=== PATIENT | female | born 1970 | race Caucasian/White ===

== ENCOUNTER 2018-11-13 11:36 | Emergency (ER) | payer OTHER ==
[2018-11-13 11:51] VITALS: BP 117/70; PULSE 83; TEMP 98.2; BMI 36.3
--- NOTE | 2018-11-13 11:52 | PDOC ---
Rapid Medical Evaluation Chief Complaint: Laceration Time Seen by Provider: 11/13/18 11:47 Medical Evaluation: Allergies Allergy/AdvReac Type Severity Reaction Status Date / Time No Known Allergies Allergy Verified 11/13/18 11:47 11/13/18 11:47 I have performed a brief in-person evaluation of this patient. The patient presents with a chief complaint of:right index finger lac with a glass yesterday. h/o DM. Does not recall last tetanus Pertinent physical exam findings:1CM Lac to plantar aspect of proximal phalange of right index finger I have ordered the following: boostrix The patient will proceed to the ED for further evaluation. Discharge Disposition - Diagnosis Laceration of right index finger Qualifiers: Encounter type: initial encounter Damage to nail status: without damage Foreign body presence: without foreign body Qualified Code(s): S61.210A - Laceration without foreign body of right index finger without damage to nail, initial encounter - Discharge Dispostion Condition at time of disposition: Stable - Referrals - Patient Instructions - Post Discharge Activity
[2018-11-13] MEDS ORDERED: DIPHTH,PERTUSS(ACELL),TET 0.5 ML DISP.SYRIN IM ONE ×2 (11:55→12:01)
--- NOTE | 2018-11-13 12:04 | PDOC ---
History of Present Illness - General Chief Complaint: Laceration Stated Complaint: WOUND Time Seen by Provider: 11/13/18 11:47 History Source: Patient - History of Present Illness Timing/Duration: reports: yesterday Location: reports: other (finger) Past History - Past Medical History Allergies/Adverse Reactions: Allergies Allergy/AdvReac Type Severity Reaction Status Date / Time No Known Allergies Allergy Verified 11/13/18 11:47 Home Medications: Ambulatory Orders Loratadine [Claritin] 10 mg PO DAILY #30 tablet 06/13/15 Methylprednisolone [Medrol Dose Alberto] 4 mg PO ASDIR #21 tablet 06/13/15 Cephalexin [Keflex] 500 mg PO Q6H #28 capsule 11/13/18 Anemia: No Asthma: Yes Cancer: No Cardiac Disorders: Yes (BLOCKAGES) COPD: No Diabetes: Yes (type 2) GI Disorders: Yes HTN: Yes Kidney Stones: No - Surgical History Cardiac Surgery: No (card cath no stent) Cholecystectomy: Yes Orthopedic Surgery: Yes (1 week ago post arthroscopic outpatient) - Reproductive History (#): 10 Para: 1 Cervical CA: No Dysfunctional Uterine Bleeding: No Ectopic : No Endometrial CA: No Polycystic Ovaries: No Therapeutic (s) & number: Yes (9) Tubal Ligation: No - Immunization History Immunization Up to Date: No - Suicide/Smoking/Psychosocial Hx Smoking Status: No Smoking History: Current some day smoker Have you smoked in the past 12 months: No Number of Cigarettes Smoked Daily: 0 If you are a former smoker, when did you quit?: 03/2015 Information on smoking cessation initiated: No 'Breaking Loose' booklet given: 10/27/14 Hx Alcohol Use: No Drug/Substance Use Hx: No Substance Use Type: Alcohol Review of Systems - Review of Systems Constitutional: No: Chills, Fever *Physical Exam - Vital Signs Last Vital Signs Temp Pulse Resp BP Pulse Ox 98.2 F 83 18 117/70 96 11/13/18 11:49 11/13/18 11:49 11/13/18 11:49 11/13/18 11:49 11/13/18 11:49 - Physical Exam General Appearance: Yes: Appropriately Dressed. No: Apparent Distress HEENT: positive: Normal Voice Neck: positive: Supple Respiratory/Chest: negative: Respiratory Distress Extremity: positive: Other (minor cutaneous lac to volar aspect of proximal phalanx of R index w/ sig ttp, minimal swelling diffusely to digit, no e/o abscess, FROMI w/ no sig pain w/ movement) Integumentary: positive: Dry, Warm Neurologic: positive: Fully Oriented, Alert, Normal Mood/Affect Medical Decision Making - Medical Decision Making 11/13/18 12:23 48 yo female, IDDM, here with pain, swelling to R index finger after sustaining laceration from broken nail maltese bottle yesterday. Denies fever or chills. Feels well otherwise see exam Minor lac to R index w/ ? early cellulitis, no tenosynovitis or abscess -local wound care in ED -Tetanus updated -dc w/ abx -wound check in 2 days 11/13/18 13:01 *DC/Admit/Observation/Transfer Diagnosis at time of Disposition: Laceration of right index finger Qualifiers: Encounter type: initial encounter Damage to nail status: without damage Foreign body presence: without foreign body Qualified Code(s): S61.210A - Laceration without foreign body of right index finger without damage to nail, initial encounter - Discharge Dispostion Disposition: HOME Condition at time of disposition: Stable - Prescriptions Prescriptions: Cephalexin [Keflex] 500 mg PO Q6H #28 capsule - Referrals - Patient Instructions Printed Discharge Instructions: DI for Minor Laceration Additional Instructions: You were started on antibiotics for possible wound infection. Take medication as prescribed. Please return to ER in 2 days for wound check - Post Discharge Activity
== END 2018-11-13 12:28 | disposition home or self-care (01) ==
LOC: JERFT 11:36
PROC: 3E0234Z Introduction of Serum, Toxoid and Vaccine into Muscle, Percutaneous Approach (ICD-10-PCS; principal; 2018-11-13)
DX: S61.210A Laceration without foreign body of right index finger without damage to nail, initial encounter (principal); W25.XXXA Contact with sharp glass, initial encounter; Y93.89 Activity, other specified; Y92.89 Other specified places as the place of occurrence of the external cause; E11.9 Type 2 diabetes mellitus without complications; F17.210 Nicotine dependence, cigarettes, uncomplicated; J45.909 Unspecified asthma, uncomplicated; I10 Essential (primary) hypertension
CPT/HCPCS: 90471; 90715; 99281-25

== ENCOUNTER 2018-12-21 10:32 | Emergency (ER) | payer OTHER ==
[2018-12-21 10:48] VITALS: BP 106/79; PULSE 82; TEMP 98.1; BMI 36.3
[2018-12-21] MEDS ORDERED: morphine CARPU-JECT 2 MG/1 ML DISP.SYRIN IVPUSH ONE (12:48)
[2018-12-21] MEDS ORDERED: MORPHINE SULFATE 2 MG/ML VIAL ONE (13:30)
[2018-12-21 13:36] LABS: PH,URINE 5.5 (5.0-8.0); URINE APPEARANCE CLEAR; URINE BILIRUBIN NEGATIVE (NEGATIVE); URINE COLOR YELLOW; URINE GLUCOSE (UA) 3+ (NEGATIVE); URINE KETONE NEGATIVE (NEGATIVE); URINE LEUK ESTERASE NEGATIVE (NEGATIVE); URINE NITRITE NEGATIVE (NEGATIVE); URINE PROTEIN NEGATIVE (NEGATIVE); URINE UROBILINOGEN 0.2 mg/dL (0.2-1.0)
--- NOTE | 2018-12-21 13:44 | PDOC ---
History of Present Illness - General Chief Complaint: Wound Stated Complaint: BLEEDING / BELLY BUTTON Time Seen by Provider: 12/21/18 12:43 History Source: Patient Exam Limitations: No Limitations - History of Present Illness Travel History: No Initial Comments: 12/21/18 13:29 48-year-old female presents the emergency room with complaints of pain to her belly button for the past 3 days now with redness and drainage noted this morning. Patient history of diabetes and denies elevated glucose. Denies injury to the affected area recent piercings, or previous infections the affected area. Timing/Duration: reports: getting worse Quality: reports: mild Abdominal Pain Onset Location: reports: periumbilical Pain Radiation: reports: no radiation Activities at Onset: reports: none Aggravating Factors: improves with: Movement Alleviating Factors: improves with: None Past History - Travel Traveled outside of the country in the last 30 days: No Close contact w/someone who was outside of country & ill: No - Past Medical History Allergies/Adverse Reactions: Allergies Allergy/AdvReac Type Severity Reaction Status Date / Time No Known Allergies Allergy Verified 12/21/18 10:43 Home Medications: Ambulatory Orders Albuterol Sulfate Inhaler - [Ventolin Hfa Inhaler -] 1 - 2 inh PO QID PRN Aspirin 81 mg PO DAILY 12/21/18 Atorvastatin Ca [Lipitor] 10 mg PO HS 12/21/18 Ibuprofen [Motrin -] 600 mg PO QID PRN 12/21/18 Metoprolol Succinate [Toprol Xl -] 25 mg PO DAILY 12/21/18 metFORMIN HCL [Metformin HCl] 1,000 mg PO DAILY 12/21/18 predniSONE [Deltasone -] 10 mg PO ASDIR 12/21/18 Anemia: No Asthma: Yes Cancer: No Cardiac Disorders: Yes (BLOCKAGES) COPD: No Diabetes: Yes (type 2) GI Disorders: Yes HTN: Yes Kidney Stones: No - Surgical History Cardiac Surgery: No (card cath no stent) Cholecystectomy: Yes Orthopedic Surgery: Yes (1 week ago post arthroscopic outpatient) - Reproductive History (#): 10 Para: 1 Cervical CA: No Dysfunctional Uterine Bleeding: No Ectopic : No Endometrial CA: No Polycystic Ovaries: No Therapeutic (s) & number: Yes (9) Tubal Ligation: No - Immunization History Immunization Up to Date: No - Suicide/Smoking/Psychosocial Hx Smoking Status: No Smoking History: Unknown if ever smoked Have you smoked in the past 12 months: No Number of Cigarettes Smoked Daily: 0 If you are a former smoker, when did you quit?: 03/2015 'Breaking Loose' booklet given: 10/27/14 Hx Alcohol Use: No Drug/Substance Use Hx: No Substance Use Type: Alcohol Patient Lives Alone: No Lives with/in: spouse/SO Abd/GI Specific PMHX - Complaint Specific PMHX Gall Bladder Disease: Yes Pancreatitis: No GI Ulcer Disease: No Review of Systems - Review of Systems Able to Perform ROS?: No Constitutional: No: Symptoms Reported HEENTM: No: Symptoms Reported Respiratory: No: Symptoms reported Cardiac (ROS): No: Symptoms Reported ABD/GI: Yes: Other Musculoskeletal: No: Symptoms Reported Integumentary: Yes: Erythema Neurological: No: Symptoms reported Endocrine: No: Symptoms Reported Hematologic/Lymphatic: No: Symptoms Reported *Physical Exam - Vital Signs Last Vital Signs Temp Pulse Resp BP Pulse Ox 98.1 F 82 18 106/79 94 L 12/21/18 10:47 12/21/18 10:47 12/21/18 10:47 12/21/18 10:47 12/21/18 10:47 - Physical Exam General Appearance: Yes: Nourished, Appropriately Dressed. No: Apparent Distress HEENT: negative: Pale Conjunctivae Respiratory/Chest: positive: Lungs Clear, Normal Breath Sounds. negative: Respiratory Distress, Accessory Muscle Use Cardiovascular: positive: Regular Rhythm, Regular Rate. negative: Murmur Gastrointestinal/Abdominal: positive: Soft, Tenderness (periumbilical) Integumentary: positive: Other (Noted circular erythematous area surrounding the umbilical region area warm to touch and noted small amount of purulent drainage within the Navel) Neurologic: positive: Motor Strength 5/5 (ambulatory) ED Treatment Course - LABORATORY CBC & Chemistry Diagram: 12/21/18 13:40 12/21/18 13:40 - ADDITIONAL ORDERS Additional order review: Laboratory Results 12/21/18 12/21/18 13:00 12:00 Urine Color Yellow Urine Appearance Clear Urine pH 5.5 Ur Specific [place] 1.029 Urine Protein Negative Urine Glucose (UA) 3+ H Urine Ketones Negative Urine Blood Negative Urine Nitrite Negative Urine Bilirubin Negative Urine Urobilinogen 0.2 Ur Leukocyte Esterase Negative Urine HCG, Qual Negative - RADIOLOGY Radiology Studies Ordered: Category Date Time Status ABDOMEN & PELVIS CT WITH CONTR [CT] Stat CT Scan 12/21/18 12:48 Ordered Medical Decision Making - Medical Decision Making 12/21/18 13:08 Chief complaint: Warm red tender area over the periumbilical region patient is a diabetic with history of MRSA Exam. Patient with noted erythematous warm to touch tender area over the periumbilical region with purulent drainage noted and within the naval. No palpable fluctuance Plan: Labs, wound culture, urine, morphine and ultrasound 12/21/18 14:48 Laboratory Tests 12/21/18 12/21/18 12/21/18 12:00 13:00 13:40 WBC 10.6 H Hgb 14.6 Hct 42.8 Sodium Potassium Chloride Carbon Dioxide Anion Gap BUN Creatinine Random Glucose Lactic Acid Calcium Total Bilirubin AST ALT Alkaline Phosphatase Total Protein Albumin Urine Glucose (UA) 3+ H Ur Leukocyte Esterase Negative Urine HCG, Qual Negative 12/21/18 12/21/18 13:40 13:40 WBC Hgb Hct Sodium 136 Potassium 3.8 Chloride 104 Carbon Dioxide 29 Anion Gap 3 L BUN 7.2 Creatinine 0.5 L Random Glucose 216 H Lactic Acid 1.6 Calcium 9.1 Total Bilirubin 0.4 AST 12 L ALT 31 Alkaline Phosphatase 101 Total Protein 6.7 Albumin 3.4 Urine Glucose (UA) Ur Leukocyte Esterase Urine HCG, Qual 12/21/18 16:38 CT shows interval development of a concent check subcutaneous edema along the umbilicus. There is also probable small amount of associated subcutaneous fluid possibly representing an abscess. No intra-abdominal extension is seen. Patient requesting to be discharged home and will return to the ED if symptoms worsen. I will prescribe patient Bactrim and Keflex with recommendations to apply hot towels take warm showers and observe for worsening symptoms. *DC/Admit/Observation/Transfer Diagnosis at time of Disposition: Abscess, umbilical - Discharge Dispostion Disposition: HOME Condition at time of disposition: Good - Referrals - Patient Instructions Printed Discharge Instructions: DI for Wound Infection Additional Instructions: Take antibiotics as prescribed until completed use Percocet as needed for pain. Apply warm compress, take hot showers 3-4 times a day /15 minutes of straight heat for at least the next 3 days. Please return to the ED if you develop any increased redness, swelling, fever, chills, pain or nausea - Post Discharge Activity
[2018-12-21 14:03] LABS: BASO % 0.3 % (0-2.0); EOS % 1.7 % (0-4.5); HEMATOCRIT 42.8 % (32.4-45.2); HEMOGLOBIN 14.6 GM/dL (10.7-15.3); LYMPH % 27.8 % (8-40); MCH 31.3 pg (25.7-33.7); MCHC 34.1 g/dl (32.0-36.0); MEAN CELL VOLUME 91.5 fl (80-96); MEAN PLT VOLUME 7.9 fl (7.5-11.1); MONO % 7.4 % (3.8-10.2); NEUT % 62.8 % (42.8-82.8); PLATELET COUNT 289 K/MM3 (134-434); RBC 4.67 M/mm3 (3.60-5.2); RDW 13.4 % (11.6-15.6); WHITE BLOOD COUNT 10.6 K/mm3 (4.0-10.0)
[2018-12-21 14:21] LABS: ALBUMIN 3.4 g/dl (3.4-5.0); BILIRUBIN,TOTAL 0.4 mg/dL (0.2-1); BLOOD UREA NITROGEN 7.2 mg/dL (7-18); CALCIUM 9.1 mg/dL (8.5-10.1); CREATININE 0.5 mg/dL (0.55-1.3); POTASSIUM 3.8 mmol/L (3.5-5.1); TOT PROT 6.7 g/dl (6.4-8.2)
== END 2018-12-21 17:06 | disposition home or self-care (01) ==
LOC: JER 10:32
PROC: 3E033NZ Introduction of Analgesics, Hypnotics, Sedatives into Peripheral Vein, Percutaneous Approach (ICD-10-PCS; principal; 2018-12-21)
DX: L02.216 Cutaneous abscess of umbilicus (principal); I25.10 Atherosclerotic heart disease of native coronary artery without angina pectoris; I10 Essential (primary) hypertension; Z98.61 Coronary angioplasty status; E11.9 Type 2 diabetes mellitus without complications; Z79.84 Long term (current) use of oral hypoglycemic drugs
CPT/HCPCS: 36415; 74177-TC; 80053; 81003; 83605; 84703; 85025; 87070; 87077; 87205; 96374; 99283-25

== ENCOUNTER 2019-02-13 13:11 | Emergency (ER) | payer OTHER ==
[2019-02-13 13:34] VITALS: BP 126/88; PULSE 74; TEMP 98; BMI 36.3
--- NOTE | 2019-02-13 14:12 | PDOC ---
History of Present Illness - General Chief Complaint: Wound Stated Complaint: WOUND Time Seen by Provider: 02/13/19 13:49 - History of Present Illness Initial Comments: 02/13/19 14:12 CHIEF COMPLAINT: periumbilical pain HISTORY OF PRESENT ILLNESS: 49 yo F with hx of asthma, NIDDM, hypertension, s/p cholecystectomy presents the fast track with periumbilical pain since yesterday. Patient reports that she was seen here 2 months ago for similar symptoms and was diagnosed with "an abscess behind my belly button." She was prescribed Bactrim and Keflex and states she did feel better afterwards but "I' m started to feel the same thing again." No recent travel or sick contacts. PAST MEDICAL HISTORY: diabetes, HTN, FAMILY HISTORY: Denies SOCIAL HISTORY: Denies tobacco, alcohol, illicit drug use. SURGICAL HISTORY: cholecystectomy ALLERGIES: No known drug allergies REVIEW OF SYSTEMS General/Constitutional: Denies fever or chills. Denies weakness, weight change. HEENT: Denies change in vision. Denies ear pain or discharge. Denies sore throat. Cardiovascular: Denies chest pain or shortness of breath. Respiratory: Denies cough, wheezing, or hemoptysis. Gastrointestinal: Denies nausea, vomiting, diarrhea or constipation. Denies rectal bleeding. Genitourinary: Denies dysuria, frequency, or change in urination. Musculoskeletal: Denies joint or muscle swelling or pain. Denies neck or back pain. Skin: Warmth and pain to skin surrounding umbilicus. Neurologic: Denies headache, vertigo, loss of consciousness, or loss of sensation. PHYSICAL EXAM General Appearance: Well-appearing, appropriately dressed. No apparent distress , no intoxication. HEENT: EOMI, PERRLA, normal ENT inspection, normal voice, TMs normal, pharynx normal. No conjunctival pallor. No photophobia, scleral icterus. Neck: Supple. Trachea midline. No tenderness, rigidity, carotid bruit, stridor , lymphadenopathy, or thyromegaly. Respiratory/Chest: Lungs CTAB. No shortness of breath, chest tenderness, respiratory distress, accessory muscle use. No crackles, rales, rhonchi, stridor , wheezing, dullness Cardiovascular: RRR. S1, S2. No JVD, murmur, bradycardia, tachycardia. Vascular Pulses: Dorsalis-Pedis (R): 2+, Dorsalis-Pedis (L): 2+ Gastrointestinal/Abdominal: Periumbilical tenderness with purulent discharge to umbilicus, no erythema, swelling, induration. Normal bowel sounds. Abdomen soft, non-distended. No tenderness or rebound tenderness. No organomegaly, pulsatile mass, guarding, hernia, hepatomegaly, splenomegaly. Lymphatic: No adenopathy, tenderness. Musculoskeletal/Extremities: Normal inspection. FROM of all extremities, normal capillary refill. Pelvis Stable. No CVA tenderness. No tenderness to extremities, pedal edema, swelling, erythema or deformity. Integumentary: Appropriate color, dry, warm. No cyanosis, erythema, jaundice or rash Neurologic: loan originator II-XII intact. Fully oriented, alert. Appropriate mood/affect. Motor strength 5/5. No appreciable EOM palsy, facial droop or sensory deficit. Past History - Past Medical History Allergies/Adverse Reactions: Allergies Allergy/AdvReac Type Severity Reaction Status Date / Time No Known Allergies Allergy Verified 02/13/19 13:35 Home Medications: Ambulatory Orders Albuterol Sulfate Inhaler - [Ventolin Hfa Inhaler -] 1 - 2 inh PO QID PRN Aspirin 81 mg PO DAILY 12/21/18 Atorvastatin Ca [Lipitor] 10 mg PO HS 12/21/18 Cephalexin [Keflex] 500 mg PO BID #14 capsule 12/21/18 Ibuprofen [Motrin -] 600 mg PO QID PRN 12/21/18 Metoprolol Succinate [Toprol Xl -] 25 mg PO DAILY 12/21/18 Oxycodone HCl/Acetaminophen [Percocet 5-325 mg Tablet] 1 - 2 tab PO Q6H PRN #12 tab MDD 4 12/21/18 Sulfamethoxazole/Trimethoprim [Bactrim Ds -] 1 tab PO BID #14 tablet 12/21/18 metFORMIN HCL [Metformin HCl] 1,000 mg PO DAILY 12/21/18 predniSONE [Deltasone -] 10 mg PO ASDIR 12/21/18 Oxycodone HCl/Acetaminophen [Percocet 5-325 mg Tablet] 1 tab PO Q6H PRN #12 tab MDD 4 02/13/19 Anemia: No Asthma: Yes Cancer: No Cardiac Disorders: Yes (BLOCKAGES) COPD: No Diabetes: Yes (type 2) GI Disorders: Yes HTN: Yes Kidney Stones: No - Surgical History Cardiac Surgery: No (card cath no stent) Cholecystectomy: Yes Orthopedic Surgery: Yes (1 week ago post arthroscopic outpatient) - Reproductive History (#): 10 Para: 1 Cervical CA: No Dysfunctional Uterine Bleeding: No Ectopic : No Endometrial CA: No Polycystic Ovaries: No Therapeutic (s) & number: Yes (9) Tubal Ligation: No - Immunization History Immunization Up to Date: No - Suicide/Smoking/Psychosocial Hx Smoking Status: No Smoking History: Current every day smoker Have you smoked in the past 12 months: No Number of Cigarettes Smoked Daily: 0 If you are a former smoker, when did you quit?: 03/2015 Information on smoking cessation initiated: No 'Breaking Loose' booklet given: 10/27/14 Hx Alcohol Use: Yes (SOCIAL) Drug/Substance Use Hx: No Substance Use Type: Alcohol *Physical Exam - Vital Signs Last Vital Signs Temp Pulse Resp BP Pulse Ox 98.0 F 74 17 126/88 93 L 02/13/19 13:30 02/13/19 13:30 02/13/19 13:30 02/13/19 13:30 02/13/19 13:30 ED Treatment Course - LABORATORY CBC & Chemistry Diagram: 02/13/19 14:31 02/13/19 14:31 Medical Decision Making - Medical Decision Making 02/13/19 14:18 49 yo F with hx of diabetes presents the fast track with periumbilical pain since yesterday. -labs -CTAP -wound culture sent 02/13/19 14:45 Note: Patient was initially triaged to Fast-track. After review of the history of present illness and physical examination by Nurse Practitioner, the patient was transfered to the main ED for higher lever of care. The patient is medically stable for transfer, ED attending and charge nurse/main ED nursing staff aware. Discussed case with HALEY Rai and discharge rn Yousef. *DC/Admit/Observation/Transfer Diagnosis at time of Disposition: Umbilical hernia without obstruction or gangrene - Discharge Dispostion Disposition: HOME Condition at time of disposition: Good - Prescriptions Prescriptions: Oxycodone HCl/Acetaminophen [Percocet 5-325 mg Tablet] 1 tab PO Q6H PRN #12 tab MDD 4 PRN Reason: Severe Pain - Referrals Referrals: [place] MD [Staff Physician] - - Patient Instructions Additional Instructions: Take Tylenol 1 g every 6 hours as needed for pain. You may take 1 Percocet every 6 hours as needed for pain not relieved by Tylenol. You have been given a referral for general surgeon. Call to schedule an appointment for reevaluation and potential surgery. Return to the emergency department for any new or worsening symptoms. Thank you very much for choosing us to provide your emergent health care needs. - Post Discharge Activity
[2019-02-13 14:54] LABS: BASO % 0.7 % (0-2.0); EOS % 1.1 % (0-4.5); HEMOGLOBIN 15.7 GM/dL (10.7-15.3); LYMPH % 28.8 % (8-40); MCH 31.3 pg (25.7-33.7); MCHC 34.1 g/dl (32.0-36.0); MEAN CELL VOLUME 91.6 fl (80-96); MEAN PLT VOLUME 7.9 fl (7.5-11.1); MONO % 6.4 % (3.8-10.2); PLATELET COUNT 354 K/MM3 (134-434); RBC 5.02 M/mm3 (3.60-5.2); RDW 13.4 % (11.6-15.6)
[2019-02-13 15:11] LABS: ALBUMIN 3.4 g/dl (3.4-5.0); BILIRUBIN,TOTAL 0.8 mg/dL (0.2-1); BLOOD UREA NITROGEN 6.6 mg/dL (7-18); CALCIUM 9.3 mg/dL (8.5-10.1); CREATININE 0.7 mg/dL (0.55-1.3); POTASSIUM 3.9 mmol/L (3.5-5.1)
--- NOTE | 2019-02-13 15:13 | PDOC ---
*Physical Exam - Vital Signs Last Vital Signs Temp Pulse Resp BP Pulse Ox 98.0 F 74 17 126/88 93 L 02/13/19 13:30 02/13/19 13:30 02/13/19 13:30 02/13/19 13:30 02/13/19 13:30 ED Treatment Course - LABORATORY CBC & Chemistry Diagram: 02/13/19 14:31 02/13/19 14:31 - ADDITIONAL ORDERS Additional order review: Laboratory Results 02/13/19 02/13/19 14:31 14:31 Sodium 139 Potassium 3.9 Chloride 102 Carbon Dioxide 30 Anion Gap 7 L BUN 6.6 L Creatinine 0.7 Est GFR (CKD-EPI)AfAm 119.58 Est GFR (CKD-EPI)NonAf 103.18 Random Glucose 239 H Calcium 9.3 Total Bilirubin 0.8 AST 13 L ALT 21 Alkaline Phosphatase 125 H Total Protein 7.0 Albumin 3.4 Serum , Qual Negative 02/13/19 14:31 RBC 5.02 MCV 91.6 MCHC 34.1 RDW 13.4 MPV 7.9 Neutrophils % 63.0 Lymphocytes % 28.8 Monocytes % 6.4 Eosinophils % 1.1 Basophils % 0.7 Medical Decision Making - Medical Decision Making 02/13/19 15:12 Patient received in signout from HALEY Schmitt from fast track. Patient here with concern for periumbilical abscess and pending labs along with abdominal CT. Patient otherwise comfortable *DC/Admit/Observation/Transfer Diagnosis at time of Disposition: Umbilical hernia without obstruction or gangrene - Discharge Dispostion Disposition: HOME Condition at time of disposition: Good - Prescriptions Prescriptions: Oxycodone HCl/Acetaminophen [Percocet 5-325 mg Tablet] 1 tab PO Q6H PRN #12 tab MDD 4 PRN Reason: Severe Pain - Referrals Referrals: [place] MD [Staff Physician] - - Patient Instructions Additional Instructions: Take Tylenol 1 g every 6 hours as needed for pain. You may take 1 Percocet every 6 hours as needed for pain not relieved by Tylenol. You have been given a referral for general surgeon. Call to schedule an appointment for reevaluation and potential surgery. Return to the emergency department for any new or worsening symptoms. Thank you very much for choosing us to provide your emergent health care needs. - Post Discharge Activity
--- NOTE | 2019-02-13 16:17 | PDOC ---
*Physical Exam - Vital Signs Last Vital Signs Temp Pulse Resp BP Pulse Ox 98.0 F 74 17 126/88 93 L 02/13/19 13:30 02/13/19 13:30 02/13/19 13:30 02/13/19 13:30 02/13/19 13:30 - Physical Exam General Appearance: Yes: Appropriately Dressed. No: Apparent Distress Gastrointestinal/Abdominal: positive: Normal Bowel Sounds, Soft, Hernia ( reducible umbilical). negative: Tender ED Treatment Course - LABORATORY CBC & Chemistry Diagram: 02/13/19 14:31 02/13/19 14:31 - ADDITIONAL ORDERS Additional order review: Laboratory Results 02/13/19 02/13/19 14:31 14:31 Sodium 139 Potassium 3.9 Chloride 102 Carbon Dioxide 30 Anion Gap 7 L BUN 6.6 L Creatinine 0.7 Est GFR (CKD-EPI)AfAm 119.58 Est GFR (CKD-EPI)NonAf 103.18 Random Glucose 239 H Calcium 9.3 Total Bilirubin 0.8 AST 13 L ALT 21 Alkaline Phosphatase 125 H Total Protein 7.0 Albumin 3.4 Serum , Qual Negative 02/13/19 14:31 RBC 5.02 MCV 91.6 MCHC 34.1 RDW 13.4 MPV 7.9 Neutrophils % 63.0 Lymphocytes % 28.8 Monocytes % 6.4 Eosinophils % 1.1 Basophils % 0.7 Progress Note - Progress Note Progress Note: Received signoff from nurse practitioner Cecelia. Briefly this is a 49-year-old woman history of abdominal abscess here for evaluation of potential abdominal abscess. WBC-10 Chemistries are unremarkable except for glucose of 239. Patient is pending CTAP with oral and IV contrast at this time. Medical Decision Making - Medical Decision Making 02/13/19 18:57 CT scan is read by imaging regulation supervisor: 1. Mild umbilical hernia, containing some fat. Margins of the hernia hearing inflamed without discrete abscess, collection identified. 2. Hepatomegaly with suspected fatty liver infiltration. 3. No evidence of GI or tract obstruction or inflammatory change. Terminal ileum and appendix are within normal limits. 4.1.8 centimeters cyst right ovary. Patient with benign abdominal exam at this time. I will discharge the patient home with instructions to follow up with general surgeon. Referral will be provided. This reports increased pain and inability to take Motrin due to GI issues rate I will give a short-term prescription for Percocet until patient is evaluated by general surgery. I discussed the physical exam findings, ancillary test results and final diagnoses with the patient. I answered all of the patient's questions. The patient was satisfied with the care received and felt comfortable with the discharge plan and treatment plan. The patient will call their primary care physician within 24 hours to arrange follow-up and will return to the Emergency Department with any new, persistent or worsening symptoms. Portions of this note have been documented using voice recognition software. As a result, errors may occur in the orchestrator process. Effort has been made to correct all grammatical and orchestrator error, but some may have been missed. *DC/Admit/Observation/Transfer Diagnosis at time of Disposition: Umbilical hernia without obstruction or gangrene - Discharge Dispostion Disposition: HOME Condition at time of disposition: Fair Decision to Admit order: No - Prescriptions Prescriptions: Oxycodone HCl/Acetaminophen [Percocet 5-325 mg Tablet] 1 tab PO Q6H PRN #12 tab MDD 4 PRN Reason: Severe Pain - Referrals Referrals: [place] MD [Staff Physician] - - Patient Instructions Additional Instructions: Take Tylenol 1 g every 6 hours as needed for pain. You may take 1 Percocet every 6 hours as needed for pain not relieved by Tylenol. You have been given a referral for general surgeon. Call to schedule an appointment for reevaluation and potential surgery. Return to the emergency department for any new or worsening symptoms. Thank you very much for choosing us to provide your emergent health care needs. - Post Discharge Activity
== END 2019-02-13 19:22 | disposition home or self-care (01) ==
LOC: JERFT 13:11 → JER 13:11
DX: K42.9 Umbilical hernia without obstruction or gangrene (principal); I25.10 Atherosclerotic heart disease of native coronary artery without angina pectoris; I10 Essential (primary) hypertension; Z98.61 Coronary angioplasty status; E11.9 Type 2 diabetes mellitus without complications; Z79.84 Long term (current) use of oral hypoglycemic drugs; Z98.890 Other specified postprocedural states
CPT/HCPCS: 36415; 74177-TC; 80053; 84703; 85025; 87070; 87205; 99283-25

== ENCOUNTER 2019-05-03 15:37 | Emergency (ER) | payer OTHER ==
--- NOTE | 2019-05-03 15:43 | PDOC ---
Rapid Medical Evaluation Time Seen by Provider: 05/03/19 15:43 Medical Evaluation: Allergies Allergy/AdvReac Type Severity Reaction Status Date / Time No Known Allergies Allergy Verified 02/13/19 13:35 05/03/19 15:43 I have performed a brief in-person evaluation of this patient. The patient presents with a chief complaint of: abdominal pain Pertinent physical exam findings:stable and in NAD, non-focal I have ordered the following:labs The patient will proceed to the ED for further evaluation.
[2019-05-03 15:44] VITALS: BP 131/69; PULSE 80; TEMP 98; BMI 36.3
[2019-05-03 16:10] LABS: BASO % 0.6 % (0-2.0); EOS % 1.4 % (0-4.5); HEMATOCRIT 47.2 % (32.4-45.2); HEMOGLOBIN 15.7 GM/dL (10.7-15.3); LYMPH % 28.9 % (8-40); MCH 30.7 pg (25.7-33.7); MCHC 33.3 g/dl (32.0-36.0); MEAN CELL VOLUME 92.4 fl (80-96); MEAN PLT VOLUME 8.3 fl (7.5-11.1); MONO % 6.2 % (3.8-10.2); NEUT % 62.9 % (42.8-82.8); PLATELET COUNT 345 K/MM3 (134-434); RBC 5.11 M/mm3 (3.60-5.2); RDW 13.5 % (11.6-15.6); WHITE BLOOD COUNT 10.5 K/mm3 (4.0-10.0)
[2019-05-03 16:35] LABS: INR 0.92 (0.83-1.09); PROTHROMBIN TIME (PATIENT) 10.9 SEC (9.7-13.0)
[2019-05-03 16:37] LABS: ACTIVATED PTT 31.2 SECONDS (25.2-36.5)
[2019-05-03 16:38] LABS: ALBUMIN 3.3 g/dl (3.4-5.0); BILIRUBIN,TOTAL 0.5 mg/dL (0.2-1); CALCIUM 9.4 mg/dL (8.5-10.1); CREATININE 0.6 mg/dL (0.55-1.3); POTASSIUM 4.1 mmol/L (3.5-5.1); TOT PROT 6.8 g/dl (6.4-8.2)
--- NOTE | 2019-05-03 18:09 | PDOC ---
History of Present Illness - General Chief Complaint: Pain Stated Complaint: ABD PAIN Time Seen by Provider: 05/03/19 15:43 History Source: Patient Exam Limitations: No Limitations - History of Present Illness Travel History: No Initial Comments: 05/03/19 18:04 49-year-old female with recent diagnosis of abdominal hernia pending surgery by Dr. Evans. Patient states went to have her surgery done recently but her sugar was elevated in the 400s and was rescheduled along with diet and medication adjustment. patient is requesting something for pain since she states pain is worsened with ambulation and sitting position. Patient denies fever, chills, change in bowel pattern, change in urine pattern , or skin discoloration Timing/Duration: reports: intermittent Quality: reports: moderate Abdominal Pain Onset Location: reports: periumbilical Pain Radiation: reports: LLQ Activities at Onset: reports: none Aggravating Factors: improves with: Movement Alleviating Factors: improves with: Rest Past History - Travel Traveled outside of the country in the last 30 days: No Close contact w/someone who was outside of country & ill: No - Past Medical History Allergies/Adverse Reactions: Allergies Allergy/AdvReac Type Severity Reaction Status Date / Time Sulfa (Sulfonamide Allergy Verified 05/03/19 15:44 Antibiotics) Home Medications: Ambulatory Orders Albuterol Sulfate Inhaler - [Ventolin Hfa Inhaler -] 1 - 2 inh PO QID PRN Aspirin 81 mg PO DAILY 12/21/18 Atorvastatin Ca [Lipitor] 10 mg PO HS 12/21/18 Cephalexin [Keflex] 500 mg PO BID #14 capsule 12/21/18 Ibuprofen [Motrin -] 600 mg PO QID PRN 12/21/18 Metoprolol Succinate [Toprol Xl -] 25 mg PO DAILY 12/21/18 Oxycodone HCl/Acetaminophen [Percocet 5-325 mg Tablet] 1 - 2 tab PO Q6H PRN #12 tab MDD 4 12/21/18 Sulfamethoxazole/Trimethoprim [Bactrim Ds -] 1 tab PO BID #14 tablet 12/21/18 metFORMIN HCL [Metformin HCl] 1,000 mg PO DAILY 12/21/18 predniSONE [Deltasone -] 10 mg PO ASDIR 12/21/18 Oxycodone HCl/Acetaminophen [Percocet 5-325 mg Tablet] 1 tab PO Q6H PRN #12 tab MDD 4 02/13/19 Anemia: No Asthma: Yes Cancer: No Cardiac Disorders: Yes (BLOCKAGES) COPD: No Diabetes: Yes (type 2) GI Disorders: Yes HTN: Yes Kidney Stones: No - Surgical History Cardiac Surgery: No (card cath no stent) Cholecystectomy: Yes Orthopedic Surgery: Yes (1 week ago post arthroscopic outpatient) - Reproductive History (#): 10 Para: 1 Cervical CA: No Dysfunctional Uterine Bleeding: No Ectopic : No Endometrial CA: No Polycystic Ovaries: No Therapeutic (s) & number: Yes (9) Tubal Ligation: No - Immunization History Immunization Up to Date: No - Psycho Social/Smoking Cessation Hx Smoking Status: No Smoking History: Never smoked Have you smoked in the past 12 months: No Number of Cigarettes Smoked Daily: 0 If you are a former smoker, when did you quit?: 03/2015 'Breaking Loose' booklet given: 10/27/14 Hx Alcohol Use: Yes (SOCIAL) Drug/Substance Use Hx: No Substance Use Type: Alcohol Patient Lives Alone: No Lives with/in: spouse/SO Abd/GI Specific PMHX - Complaint Specific PMHX Gall Bladder Disease: Yes Pancreatitis: No GI Ulcer Disease: No Review of Systems - Review of Systems Able to Perform ROS?: Yes Constitutional: No: Symptoms Reported ABD/GI: Yes: Abdominal cramping : No: Symptoms Reported Musculoskeletal: No: Symptoms Reported Integumentary: No: Symptoms Reported Neurological: No: Symptoms reported Hematologic/Lymphatic: No: Symptoms Reported *Physical Exam - Vital Signs Last Vital Signs Temp Pulse Resp BP Pulse Ox 98 F 80 18 131/69 98 05/03/19 15:41 05/03/19 15:41 05/03/19 15:41 05/03/19 15:41 05/03/19 15:41 - Physical Exam General Appearance: Yes: Nourished, Appropriately Dressed. No: Apparent Distress HEENT: negative: Pale Conjunctivae Neck: positive: Supple Respiratory/Chest: positive: Lungs Clear, Normal Breath Sounds. negative: Respiratory Distress, Accessory Muscle Use Cardiovascular: positive: Regular Rhythm, Regular Rate. negative: Murmur Gastrointestinal/Abdominal: positive: Soft, Tenderness (Left periumbilical . no reproducible hernia no signs of strangulation) Musculoskeletal: negative: CVA Tenderness Extremity: positive: Normal Inspection Integumentary: positive: Normal Color, Warm, Moist Neurologic: positive: Motor Strength 5/5 (ambulatory) ED Treatment Course - LABORATORY CBC & Chemistry Diagram: 05/03/19 15:55 05/03/19 15:55 - ADDITIONAL ORDERS Additional order review: Laboratory Results 05/03/19 05/03/19 15:55 15:55 PT with INR 10.90 INR 0.92 PTT (Actin FS) 31.2 Sodium 137 Potassium 4.1 Chloride 104 Carbon Dioxide 30 Anion Gap 3 L BUN 7.0 Creatinine 0.6 Est GFR (CKD-EPI)AfAm 125.80 Est GFR (CKD-EPI)NonAf 108.54 Random Glucose 204 H Calcium 9.4 Total Bilirubin 0.5 AST 14 L ALT 23 Alkaline Phosphatase 104 Total Protein 6.8 Albumin 3.3 L Lipase 103 05/03/19 15:55 RBC 5.11 MCV 92.4 MCHC 33.3 RDW 13.5 MPV 8.3 Neutrophils % 62.9 Lymphocytes % 28.9 Monocytes % 6.2 Eosinophils % 1.4 Basophils % 0.6 Medical Decision Making - Medical Decision Making 05/03/19 18:07 Chief complaint: Here for medical management of periumbilical hernia. patient pending surgery by Dr. diaz. Patient has no other complaints at this time. Exam: Patient with left periumbilical tenderness with no signs of strangulation or skin discoloration. Plan: Patient had labs done in [facility] which were reviewed and normal. 05/03/19 18:08 Laboratory Tests 05/03/19 05/03/19 05/03/19 15:55 15:55 15:55 WBC 10.5 H Hgb 15.7 H Hct 47.2 H Absolute Neuts (auto) 6.6 PT with INR 10.90 INR 0.92 PTT (Actin FS) 31.2 Sodium 137 Potassium 4.1 Chloride 104 Carbon Dioxide 30 BUN 7.0 Creatinine 0.6 Random Glucose 204 H Calcium 9.4 Total Bilirubin 0.5 AST 14 L ALT 23 Alkaline Phosphatase 104 Total Protein 6.8 Albumin 3.3 L Lipase 103 Discharge - Discharge Information Problems reviewed: Yes Clinical Impression/Diagnosis: Umbilical hernia without obstruction or gangrene Condition: Good Disposition: HOME - Follow up/Referral Referrals: Breanne Davis MD [Primary Care Provider] - - Patient Discharge Instructions Patient Printed Discharge Instructions: Abdominal Hernia Additional Instructions: Please do not take any narcotics or alcohol when taking the Percocet. Do not operate any heavy machinery including a vehicle. Follow-up with surgeon as discussed. - Post Discharge Activity
== END 2019-05-03 18:40 | disposition home or self-care (01) ==
LOC: JER 15:37
DX: K42.9 Umbilical hernia without obstruction or gangrene (principal); I25.10 Atherosclerotic heart disease of native coronary artery without angina pectoris; I10 Essential (primary) hypertension; Z98.61 Coronary angioplasty status; E11.9 Type 2 diabetes mellitus without complications; Z79.84 Long term (current) use of oral hypoglycemic drugs; J45.909 Unspecified asthma, uncomplicated; Z88.2 Allergy status to sulfonamides
CPT/HCPCS: 36415; 80053; 83690; 85025; 85610; 85730; 99282-25

== ENCOUNTER 2019-12-27 11:53 | Emergency (ER) | payer OTHER ==
[2019-12-27 12:05] VITALS: BP 125/68; PULSE 81; BMI 35.9
[2019-12-27 12:06] VITALS: TEMP 97.8
--- NOTE | 2019-12-27 12:06 | PDOC ---
Rapid Medical Evaluation Medical Evaluation: Allergies Allergy/AdvReac Type Severity Reaction Status Date / Time Sulfa (Sulfonamide Allergy Verified 05/03/19 15:44 Antibiotics) 12/27/19 12:03 49 h/o DM, HTN, asthma c/o erythema, pain, drainage from umbilical hernia since 3 am today. noticed swelling to area 2 days ago. denies f/c, cp, sob, back pain. VSS obese speaking full sentences erythema and swelling noticed over umbilical area ambulatory A/P: umbilical abscess to ED for eval
[2019-12-27] MEDS ORDERED: ONDANSETRON *ODT* 4 MG TABLET SL ONE (12:22)
[2019-12-27] MEDS ORDERED: ONDANSETRON *ODT* 4 MG TABLET ONE (12:33)
--- NOTE | 2019-12-27 12:54 | PDOC ---
History of Present Illness - General Chief Complaint: Pain Stated Complaint: ABD PAIN Time Seen by Provider: 12/27/19 12:17 - History of Present Illness Initial Comments: 12/27/19 12:51 49-year-old female with a past medical history of diabetes presents for evaluation of a draining umbilical hernia x1 day. No systemic symptoms. Past History - Medical History Allergies/Adverse Reactions: Allergies Allergy/AdvReac Type Severity Reaction Status Date / Time Sulfa (Sulfonamide Allergy Verified 12/27/19 12:06 Antibiotics) Home Medications: Ambulatory Orders Albuterol Sulfate Inhaler - [Ventolin Hfa Inhaler -] 1 - 2 inh PO QID PRN 12/21/18 Aspirin 81 mg PO DAILY 12/21/18 Atorvastatin Ca [Lipitor] 10 mg PO HS 12/21/18 Metoprolol Succinate [Toprol Xl -] 25 mg PO DAILY 12/21/18 metFORMIN HCL [Metformin HCl] 1,000 mg PO BID 12/21/18 Clindamycin [Cleocin -] 300 mg PO Q6HPO #28 capsule 12/27/19 Anemia: No Asthma: Yes Cancer: No Cardiac Disorders: Yes (BLOCKAGES) COPD: No Diabetes: Yes (type 2) GI Disorders: Yes HTN: Yes Kidney Stones: No - Surgical History Cardiac Surgery: No (card cath no stent) Cholecystectomy: Yes Orthopedic Surgery: Yes (1 week ago post arthroscopic outpatient) - Reproductive History (#): 10 Para: 1 Cervical CA: No Dysfunctional Uterine Bleeding: No Ectopic : No Endometrial CA: No Polycystic Ovaries: No Therapeutic (s) & number: Yes (9) Tubal Ligation: No - Immunization History Immunization Up to Date: No - Psycho-Social/Smoking History Smoking Status: No Smoking History: Current some day smoker Have you smoked in the past 12 months: Yes Number of Cigarettes Smoked Daily: 0 If you are a former smoker, when did you quit?: 03/2015 Information on smoking cessation initiated: Yes 'Breaking Loose' booklet given: 10/27/14 - Substance Abuse Hx (Audit-C & DAST Scrn) How often the patient has a drink containing alcohol: Never Score: In Men: 4 or > Positive; In Women: 3 or > Positive: 0 Screen Result (Pos requires Nsg. Audit-10AR): Negative In the last yr the pt used illegal drug/Rx for NonMed reason: No Score: Yes response is considered Positive: 0 Screen Result (Positive result requires Nsg. DAST-10): Negative Review of Systems - Review of Systems Constitutional: No: Chills, Fever, Malaise, Night Sweats ABD/GI: Yes: Nausea *Physical Exam - Vital Signs Last Vital Signs Temp Pulse Resp BP Pulse Ox 97.8 F 81 18 125/68 97 12/27/19 12:02 12/27/19 12:02 12/27/19 12:02 12/27/19 12:12/27/19 12:02 - Physical Exam 12/27/19 12:52 GENERAL: The patient is awake, alert, and fully oriented, in no acute distress. HEAD: Normal with no signs of trauma. EYES: sclera anicteric, conjunctiva clear. ENT: Ears normal tympanic membranes normal oropharynx clear uvula midline NECK: Normal range of motion LUNGS: Breath sounds equal, clear to auscultation bilaterally. No wheezes, and no crackles. HEART: S1 and S2 without murmur, rub or gallop. ABDOMEN: Soft, nontender, normoactive bowel sounds. No guarding, no rebound. No masses. There is mild erythema around the umbilicus. Dried blood in the invagination of the umbilicus. No drainage induration mild sensitivity. EXTREMITIES: Normal range of motion, no edema. No clubbing or cyanosis. No cords, erythema, or tenderness. NEUROLOGICAL: Cranial nerves II through XII grossly intact. PSYCH: Normal mood, normal affect. SKIN: Warm, Dry, normal turgor, no rashes or lesions noted. ED Treatment Course - Medications Given in the ED: ED Medications Discontinued Medications Generic Name Dose Route Start Last Admin Trade Name Freq PRN Reason Stop Dose Admin Ondansetron HCl 4 mg 12/27/19 12:22 12/27/19 12:41 Zofran Odt - SL 12/27/19 12:23 4 mg ONCE ONE Administration Oxycodone/Acetaminophen 2 combo 12/27/19 12:21 12/27/19 12:41 Percocet 5/325 - PO 12/27/19 12:22 2 combo ONCE ONE Administration Medical Decision Making - Medical Decision Making 12/27/19 12:52 This is most likely early cellulitis. There is no drainage that can be expressed. The erythema is minimal. There is no induration of the skin areas of fluctuance mild subjective sensitivity. Patient has an appointment with her operating surgeon in [address] her on a short course of clindamycin in the meantime. Tylenol for pain. I have reviewed the pathophysiology with the patient. They are in agreement with the treatment plan all questions were answered to their satisfaction. Understanding for follow-up without fail was also conveyed to the patient. Again they are in agreement. Discharge - Discharge Information Problems reviewed: Yes Clinical Impression/Diagnosis: Cellulitis Condition: Stable Disposition: HOME - Admission No - Additional Discharge Information Prescriptions: Clindamycin [Cleocin -] 300 mg PO Q6HPO #28 capsule - Follow up/Referral Referrals: Franck Breaux MD [Primary Care Provider] - Finn Lujan MD [Staff Physician] - - Patient Discharge Instructions Additional Instructions: Please take the antibiotics as directed Tylenol for pain as directed. Return to the emergency room for further issues and without fail follow-up with your surgeon in 1 to 2 days for as scheduled for further evaluation and treatment options. - Post Discharge Activity
== END 2019-12-27 13:12 | disposition home or self-care (01) ==
LOC: JER 11:53
DX: L03.311 Cellulitis of abdominal wall (principal)
CPT/HCPCS: 99283-25; Q0162

== ENCOUNTER 2020-10-08 08:36 | Emergency (ER) | payer OTHER ==
[2020-10-08 08:43] VITALS: BP 114/71; PULSE 80; TEMP 97; BMI 35.9
[2020-10-08] MEDS ORDERED: CLINDAMYCIN HCL 150 MG CAPSULE (FP) PO ONE (10:39)
[2020-10-08] MEDS ORDERED: CLINDAMYCIN HCL 150 MG CAPSULE (FP) ONE (10:40)
== END 2020-10-08 10:43 | disposition home or self-care (01) ==
LOC: JER 08:36
DX: K42.9 Umbilical hernia without obstruction or gangrene (principal)
CPT/HCPCS: 99283-25

== ENCOUNTER 2021-03-16 12:40 | Inpatient (IN) | payer OTHER ==
[2021-03-16] MEDS ORDERED: morphine SULFATE 4 MG/ML VIAL ONE ×2 (12:50→13:19)
[2021-03-16] MEDS ORDERED: morphine CARPU-JECT 4 MG/1 ML DISP.SYRIN IVPUSH ONE ×2 (12:50→13:16)
[2021-03-16 13:08] LABS: BASO % 0.5 % (0-2.0); EOS % 2.1 % (0-4.5); HEMATOCRIT 45.3 % (32.4-45.2); HEMOGLOBIN 15.3 GM/dL (10.7-15.3); LYMPH % 36.4 % (8-40); MCH 30.2 pg (25.7-33.7); MCHC 33.7 g/dl (32.0-36.0); MEAN CELL VOLUME 89.6 fl (80-96); MEAN PLT VOLUME 7.6 fl (7.5-11.1); MONO % 6.1 % (3.8-10.2); NEUT % 54.9 % (42.8-82.8); PLATELET COUNT 395 10^3/uL (134-434); RBC 5.05 M/mm3 (3.60-5.2); RDW 12.7 % (11.6-15.6); WHITE BLOOD COUNT 11.9 K/mm3 (4.0-10.0)
[2021-03-16 13:14] LABS: INR 0.97 (0.83-1.09); PROTHROMBIN TIME (PATIENT) 11.7 SEC (9.7-13.0)
[2021-03-16] MEDS ORDERED: ACETAMINOPHEN 1000 MG/100 ML VIAL IVPB ONE (13:16)
[2021-03-16 13:17] LABS: ACTIVATED PTT 25.7 SECONDS (25.2-36.5)
[2021-03-16] MEDS ORDERED: ACETAMINOPHEN INJECTION 100 ML IVPB ONE (13:19)
[2021-03-16 13:30] LABS: ALBUMIN 3.6 g/dl (3.4-5.0); BLOOD UREA NITROGEN 9.2 mg/dL (7-18); CALCIUM 9.8 mg/dL (8.5-10.1)
[2021-03-16 13:33] LABS: CREATININE 0.5 mg/dL (0.55-1.3)
[2021-03-16 13:35] LABS: BILIRUBIN,TOTAL 0.5 mg/dL (0.2-1); TOT PROT 7.6 g/dl (6.4-8.2)
[2021-03-16] MEDS ORDERED: HYDROmorphone HCL CARPU-JECT 2 MG/1 ML DISP.SYRIN IVPUSH ONE ×2 (13:56→14:32)
[2021-03-16] MEDS ORDERED: HYDROmorphone HCl 2 MG/ML VIAL ONE (13:57)
[2021-03-16] MEDS: INSULIN SLIDING SCALE (NOVOLOG) 1 VIAL SQ SCH ×2 (18:36→21:35)
[2021-03-16] MEDS: HYDROmorphone HCl 2 MG/ML VIAL IVPUSH PRN ×2 (18:41→22:54)
[2021-03-16 20:53] VITALS: BMI 34.5
[2021-03-16] MEDS: HEPARIN NA (PORCINE) 5,000 UNITS/ML 1ML VIAL SQ SCH (21:41)
[2021-03-16] MEDS: ATORVASTATIN CA 10 MG TABLET (FP) PO SCH (21:42)
[2021-03-17] MEDS: HYDROmorphone HCl 2 MG/ML VIAL IVPUSH PRN ×5 (04:40→23:50)
[2021-03-17] MEDS: INSULIN SLIDING SCALE (NOVOLOG) 1 VIAL SQ SCH ×4 (06:09→21:29)
[2021-03-17] MEDS: HEPARIN NA (PORCINE) 5,000 UNITS/ML 1ML VIAL SQ SCH ×2 (10:17→21:30)
[2021-03-17] MEDS: metoPROLOL SUCCINATE 25 MG TAB.SR.24H (FP) PO SCH (10:18)
[2021-03-17 11:47] LABS: BASO % 0.4 % (0-2.0); EOS % 0.9 % (0-4.5); HEMATOCRIT 38.3 % (32.4-45.2); HEMOGLOBIN 13.2 GM/dL (10.7-15.3); LYMPH % 21.9 % (8-40); MCH 30.6 pg (25.7-33.7); MCHC 34.3 g/dl (32.0-36.0); MEAN CELL VOLUME 89.1 fl (80-96); MEAN PLT VOLUME 7.9 fl (7.5-11.1); MONO % 7.7 % (3.8-10.2); NEUT % 69.1 % (42.8-82.8); PLATELET COUNT 343 10^3/uL (134-434); RDW 12.7 % (11.6-15.6); WHITE BLOOD COUNT 11.7 K/mm3 (4.0-10.0)
[2021-03-17 12:12] LABS: ALBUMIN 3.3 g/dl (3.4-5.0)
[2021-03-17 12:15] LABS: CREATININE 0.5 mg/dL (0.55-1.3)
[2021-03-17 12:16] LABS: BILIRUBIN,TOTAL 0.9 mg/dL (0.2-1); TOT PROT 7.1 g/dl (6.4-8.2)
[2021-03-17] MEDS ORDERED: ALBUTEROL SO4 HFA INHALER IH PRN (15:31)
[2021-03-17] MEDS: ATORVASTATIN CA 10 MG TABLET (FP) PO SCH (21:30)
[2021-03-17] MEDS: BUDESONIDE/FORMETEROL FUMARATE 160/4.5 mcg INHALER IH SCH (21:30)
[2021-03-18] MEDS: INSULIN SLIDING SCALE (NOVOLOG) 1 VIAL SQ SCH ×4 (06:31→21:25)
[2021-03-18] MEDS: HYDROmorphone HCl 2 MG/ML VIAL IVPUSH PRN (06:33)
[2021-03-18] MEDS ORDERED: morphine SULFATE 4 MG/ML VIAL IVPUSH PRN (09:45)
[2021-03-18] MEDS: morphine SULFATE 4 MG/ML VIAL IVPUSH PRN ×3 (09:53→18:31)
[2021-03-18] MEDS: metoPROLOL SUCCINATE 25 MG TAB.SR.24H (FP) PO SCH (09:56)
[2021-03-18] MEDS: HEPARIN NA (PORCINE) 5,000 UNITS/ML 1ML VIAL SQ SCH ×2 (09:59→21:22)
[2021-03-18] MEDS: BUDESONIDE/FORMETEROL FUMARATE 160/4.5 mcg INHALER IH SCH ×2 (10:01→21:28)
[2021-03-18 10:45] LABS: BASO % 0.3 % (0-2.0); EOS % 0.7 % (0-4.5); HEMATOCRIT 36.3 % (32.4-45.2); HEMOGLOBIN 12.4 GM/dL (10.7-15.3); LYMPH % 18.9 % (8-40); MCH 30.7 pg (25.7-33.7); MCHC 34.2 g/dl (32.0-36.0); MEAN CELL VOLUME 89.9 fl (80-96); MONO % 7.8 % (3.8-10.2); NEUT % 72.3 % (42.8-82.8); PLATELET COUNT 308 10^3/uL (134-434); RBC 4.04 M/mm3 (3.60-5.2); RDW 12.4 % (11.6-15.6); WHITE BLOOD COUNT 10.2 K/mm3 (4.0-10.0)
[2021-03-18] MEDS ORDERED: INSULIN (NOVOLOG) ASPART 100 UNITS/ML 10ML VIAL ONE (11:05)
[2021-03-18 11:14] LABS: BLOOD UREA NITROGEN 9.7 mg/dL (7-18); CALCIUM 8.6 mg/dL (8.5-10.1)
[2021-03-18 11:17] LABS: CREATININE 0.4 mg/dL (0.55-1.3)
[2021-03-18 11:18] LABS: BILIRUBIN,TOTAL 0.9 mg/dL (0.2-1); TOT PROT 6.7 g/dl (6.4-8.2)
[2021-03-18] MEDS: ATORVASTATIN CA 10 MG TABLET (FP) PO SCH (21:22)
[2021-03-19] MEDS: morphine SULFATE 4 MG/ML VIAL IVPUSH PRN ×4 (02:55→20:17)
[2021-03-19] MEDS: INSULIN SLIDING SCALE (NOVOLOG) 1 VIAL SQ SCH ×4 (06:35→22:15)
[2021-03-19] MEDS: HEPARIN NA (PORCINE) 5,000 UNITS/ML 1ML VIAL SQ SCH ×2 (09:29→22:13)
[2021-03-19] MEDS: metoPROLOL SUCCINATE 25 MG TAB.SR.24H (FP) PO SCH (09:29)
[2021-03-19] MEDS: BUDESONIDE/FORMETEROL FUMARATE 160/4.5 mcg INHALER IH SCH ×2 (09:33→22:15)
[2021-03-19] MEDS: ATORVASTATIN CA 10 MG TABLET (FP) PO SCH (22:13)
[2021-03-20] MEDS: morphine SULFATE 4 MG/ML VIAL IVPUSH PRN ×4 (01:05→20:46)
[2021-03-20] MEDS: INSULIN SLIDING SCALE (NOVOLOG) 1 VIAL SQ SCH ×4 (06:44→21:59)
[2021-03-20] MEDS: HEPARIN NA (PORCINE) 5,000 UNITS/ML 1ML VIAL SQ SCH ×2 (09:31→21:59)
[2021-03-20] MEDS: metoPROLOL SUCCINATE 25 MG TAB.SR.24H (FP) PO SCH (10:39)
[2021-03-20] MEDS: BUDESONIDE/FORMETEROL FUMARATE 160/4.5 mcg INHALER IH SCH ×2 (10:47→21:59)
[2021-03-20] MEDS ORDERED: BUPIVACAINE LIPOSOME/PF (EXPAREL) 266 MG/20 ML VIAL ONE (12:38)
[2021-03-20] MEDS ORDERED: BUPIVACAINE HCL/PF 0.5% (5MG/ML) 10 ML VIAL ONE ×3 (12:38→13:32)
[2021-03-20] MEDS ORDERED: MIDAZOLAM HCL 2 MG/2 ML SINGLE DOSE VIAL ONE ×2 (13:12)
[2021-03-20] MEDS ORDERED: ceFAZolin SODIUM 1 GM VIAL IVPB ONE (13:50)
[2021-03-20] MEDS ORDERED: PROPOFOL 20 ML ONE ×2 (14:02→15:07)
[2021-03-20] MEDS ORDERED: LIDOCAINE HCL/PF 2% SDV 5ML VIAL ONE (14:11)
[2021-03-20] MEDS ORDERED: ONDANSETRON 4 MG/2 ML VIAL ONE (14:11)
[2021-03-20] MEDS ORDERED: ceFAZolin SODIUM 1 GM VIAL ONE (14:11)
[2021-03-20] MEDS ORDERED: ONDANSETRON 4 MG/2 ML VIAL IVPUSH PRN ×3 (15:01→16:02)
[2021-03-20] MEDS ORDERED: MAGNESIUM HYDROX 2400MG/30ML ORAL SUSPENSION 30 ML CUP PO PRN (15:42)
[2021-03-20] MEDS ORDERED: MAG HYDROX/AL HYDROX/SIMETH 30 ML UNIT-DOSE CUP PO PRN (15:42)
[2021-03-20] MEDS ORDERED: LACTATED RINGERS SOLUTION 1,000 ML IV SCH (15:45)
[2021-03-20] MEDS ORDERED: ALBUTEROL SO4 HFA INHALER IH PRN (16:02)
[2021-03-20] MEDS ORDERED: morphine SULFATE 4 MG/ML VIAL IVPUSH PRN (16:02)
[2021-03-20] MEDS: ATORVASTATIN CA 10 MG TABLET (FP) PO SCH (21:58)
[2021-03-20] MEDS: SENNOSIDES/DOCUSATE COMBO (SENNA PLUS) TABLET (UD) PO SCH (21:58)
[2021-03-20] MEDS: CEFAZOLIN 2 GM in DEXTROSE 5%-WATER - 100 ML IVPB SCH (22:17)
[2021-03-21] MEDS: morphine SULFATE 4 MG/ML VIAL IVPUSH PRN ×6 (00:53→22:46)
[2021-03-21] MEDS: CEFAZOLIN 2 GM in DEXTROSE 5%-WATER - 100 ML IVPB SCH (05:18)
[2021-03-21] MEDS: INSULIN SLIDING SCALE (NOVOLOG) 1 VIAL SQ SCH ×4 (07:18→21:58)
[2021-03-21 09:02] LABS: HEMATOCRIT 32.6 % (32.4-45.2); HEMOGLOBIN 11.1 GM/dL (10.7-15.3); MCH 30.7 pg (25.7-33.7); MEAN CELL VOLUME 90.5 fl (80-96); MEAN PLT VOLUME 7.9 fl (7.5-11.1); PLATELET COUNT 346 10^3/uL (134-434); RDW 12.5 % (11.6-15.6); WHITE BLOOD COUNT 12.3 K/mm3 (4.0-10.0)
[2021-03-21 09:31] LABS: CALCIUM 8.7 mg/dL (8.5-10.1)
[2021-03-21 09:32] LABS: BLOOD UREA NITROGEN 7.6 mg/dL (7-18)
[2021-03-21 09:35] LABS: CREATININE 0.4 mg/dL (0.55-1.3)
[2021-03-21] MEDS: PANTOPRAZOLE 40 MG TABLET PO SCH (11:37)
[2021-03-21] MEDS: SENNOSIDES/DOCUSATE COMBO (SENNA PLUS) TABLET (UD) PO SCH ×2 (11:37→21:57)
[2021-03-21] MEDS: HEPARIN NA (PORCINE) 5,000 UNITS/ML 1ML VIAL SQ SCH ×2 (11:37→21:57)
[2021-03-21] MEDS: BUDESONIDE/FORMETEROL FUMARATE 160/4.5 mcg INHALER IH SCH ×2 (11:38→21:59)
[2021-03-21] MEDS: MULTIVITAMINS (DAILY MVI) TABLET (FP) PO SCH (11:38)
[2021-03-21] MEDS: metoPROLOL SUCCINATE 25 MG TAB.SR.24H (FP) PO SCH (11:38)
[2021-03-21] MEDS: ATORVASTATIN CA 10 MG TABLET (FP) PO SCH (21:58)
[2021-03-22] MEDS: morphine SULFATE 4 MG/ML VIAL IVPUSH PRN (03:49)
[2021-03-22] MEDS: INSULIN SLIDING SCALE (NOVOLOG) 1 VIAL SQ SCH ×4 (06:32→21:45)
[2021-03-22 08:05] LABS: BASO % 0.4 % (0-2.0); EOS % 2.2 % (0-4.5); HEMATOCRIT 32.4 % (32.4-45.2); HEMOGLOBIN 11.1 GM/dL (10.7-15.3); MCH 30.6 pg (25.7-33.7); MCHC 34.1 g/dl (32.0-36.0); MEAN CELL VOLUME 89.8 fl (80-96); MEAN PLT VOLUME 7.8 fl (7.5-11.1); MONO % 9.3 % (3.8-10.2); NEUT % 67.1 % (42.8-82.8); PLATELET COUNT 353 10^3/uL (134-434); RBC 3.61 M/mm3 (3.60-5.2); RDW 12.4 % (11.6-15.6); WHITE BLOOD COUNT 10.5 K/mm3 (4.0-10.0)
[2021-03-22] MEDS: metoPROLOL SUCCINATE 25 MG TAB.SR.24H (FP) PO SCH (09:09)
[2021-03-22] MEDS: HEPARIN NA (PORCINE) 5,000 UNITS/ML 1ML VIAL SQ SCH (09:09)
[2021-03-22] MEDS: PANTOPRAZOLE 40 MG TABLET PO SCH (09:09)
[2021-03-22] MEDS: SENNOSIDES/DOCUSATE COMBO (SENNA PLUS) TABLET (UD) PO SCH ×2 (09:09→21:45)
[2021-03-22] MEDS: MULTIVITAMINS (DAILY MVI) TABLET (FP) PO SCH (09:09)
[2021-03-22] MEDS: BUDESONIDE/FORMETEROL FUMARATE 160/4.5 mcg INHALER IH SCH ×2 (09:13→21:48)
[2021-03-22] MEDS ORDERED: oxyCODONE HCL 5 MG TABLET PO PRN (11:25)
[2021-03-22] MEDS: oxyCODONE HCL 5 MG TABLET PO PRN ×3 (13:35→21:44)
[2021-03-22] MEDS: ASPIRIN COATED 81 MG TABLET.EC PO SCH (21:45)
[2021-03-22] MEDS: CEPHALEXIN MONOHYDRATE 500 MG CAPSULE (UD) PO SCH (21:45)
[2021-03-22] MEDS: ATORVASTATIN CA 10 MG TABLET (FP) PO SCH (21:45)
[2021-03-23] MEDS: oxyCODONE HCL 5 MG TABLET PO PRN ×5 (06:11→22:41)
[2021-03-23] MEDS: INSULIN SLIDING SCALE (NOVOLOG) 1 VIAL SQ SCH ×4 (06:12→21:57)
[2021-03-23] MEDS: SENNOSIDES/DOCUSATE COMBO (SENNA PLUS) TABLET (UD) PO SCH ×2 (10:05→21:59)
[2021-03-23] MEDS: BUDESONIDE/FORMETEROL FUMARATE 160/4.5 mcg INHALER IH SCH ×2 (10:05→22:02)
[2021-03-23] MEDS: metoPROLOL SUCCINATE 25 MG TAB.SR.24H (FP) PO SCH (10:05)
[2021-03-23] MEDS: PANTOPRAZOLE 40 MG TABLET PO SCH (10:05)
[2021-03-23] MEDS: CEPHALEXIN MONOHYDRATE 500 MG CAPSULE (UD) PO SCH ×2 (10:05→21:57)
[2021-03-23] MEDS: ASPIRIN COATED 81 MG TABLET.EC PO SCH ×2 (10:05→21:57)
[2021-03-23] MEDS: MULTIVITAMINS (DAILY MVI) TABLET (FP) PO SCH (10:05)
[2021-03-23] MEDS ORDERED: INSULIN (NOVOLOG) ASPART 100 UNITS/ML 10ML VIAL ONE (11:06)
[2021-03-23] MEDS: ATORVASTATIN CA 10 MG TABLET (FP) PO SCH (21:57)
[2021-03-24] MEDS: oxyCODONE HCL 5 MG TABLET PO PRN ×5 (03:10→22:41)
[2021-03-24] MEDS: INSULIN SLIDING SCALE (NOVOLOG) 1 VIAL SQ SCH ×4 (06:53→21:41)
[2021-03-24] MEDS: SENNOSIDES/DOCUSATE COMBO (SENNA PLUS) TABLET (UD) PO SCH ×2 (09:18→21:34)
[2021-03-24] MEDS: PANTOPRAZOLE 40 MG TABLET PO SCH (09:18)
[2021-03-24] MEDS: metoPROLOL SUCCINATE 25 MG TAB.SR.24H (FP) PO SCH (09:18)
[2021-03-24] MEDS: CEPHALEXIN MONOHYDRATE 500 MG CAPSULE (UD) PO SCH ×2 (09:18→21:34)
[2021-03-24] MEDS: ASPIRIN COATED 81 MG TABLET.EC PO SCH ×2 (09:18→21:34)
[2021-03-24] MEDS: MULTIVITAMINS (DAILY MVI) TABLET (FP) PO SCH (09:18)
[2021-03-24] MEDS: BUDESONIDE/FORMETEROL FUMARATE 160/4.5 mcg INHALER IH SCH ×2 (09:22→21:42)
[2021-03-24] MEDS ORDERED: INSULIN (NOVOLOG) ASPART 100 UNITS/ML 10ML VIAL ONE ×2 (12:07→20:46)
[2021-03-24] MEDS: ATORVASTATIN CA 10 MG TABLET (FP) PO SCH (21:35)
[2021-03-25] MEDS: oxyCODONE HCL 5 MG TABLET PO PRN ×4 (04:36→21:18)
[2021-03-25] MEDS: INSULIN SLIDING SCALE (NOVOLOG) 1 VIAL SQ SCH ×4 (06:56→21:24)
[2021-03-25 08:34] LABS: BASO % 0.5 % (0-2.0); EOS % 2.8 % (0-4.5); HEMOGLOBIN 10.8 GM/dL (10.7-15.3); LYMPH % 25.5 % (8-40); MCH 30.7 pg (25.7-33.7); MCHC 34.8 g/dl (32.0-36.0); MEAN CELL VOLUME 88.1 fl (80-96); MEAN PLT VOLUME 6.8 fl (7.5-11.1); MONO % 7.8 % (3.8-10.2); NEUT % 63.4 % (42.8-82.8); PLATELET COUNT 486 10^3/uL (134-434); RBC 3.52 M/mm3 (3.60-5.2); RDW 12.5 % (11.6-15.6); WHITE BLOOD COUNT 8.6 K/mm3 (4.0-10.0)
[2021-03-25 08:49] LABS: ALBUMIN 2.5 g/dl (3.4-5.0); BLOOD UREA NITROGEN 12.1 mg/dL (7-18)
[2021-03-25 08:51] LABS: CALCIUM 8.8 mg/dL (8.5-10.1)
[2021-03-25 08:52] LABS: TOT PROT 6.4 g/dl (6.4-8.2)
[2021-03-25 08:53] LABS: CREATININE 0.4 mg/dL (0.55-1.3)
[2021-03-25] MEDS: CEPHALEXIN MONOHYDRATE 500 MG CAPSULE (UD) PO SCH ×2 (09:09→21:19)
[2021-03-25] MEDS: metoPROLOL SUCCINATE 25 MG TAB.SR.24H (FP) PO SCH (09:09)
[2021-03-25] MEDS: PANTOPRAZOLE 40 MG TABLET PO SCH (09:09)
[2021-03-25] MEDS: SENNOSIDES/DOCUSATE COMBO (SENNA PLUS) TABLET (UD) PO SCH ×2 (09:09→21:19)
[2021-03-25] MEDS: ASPIRIN COATED 81 MG TABLET.EC PO SCH ×2 (09:09→21:19)
[2021-03-25] MEDS: MULTIVITAMINS (DAILY MVI) TABLET (FP) PO SCH (09:09)
[2021-03-25] MEDS: BUDESONIDE/FORMETEROL FUMARATE 160/4.5 mcg INHALER IH SCH ×2 (09:13→21:21)
[2021-03-25] MEDS ORDERED: INSULIN (LEVEMIR) 100 UNITS/ML UNITS SQ SCH (13:45)
[2021-03-25] MEDS ORDERED: POLYETHYLENE GLYCOL 3350 119 GM BTL PO SCH (13:45)
[2021-03-25] MEDS: INSULIN (LEVEMIR) 100 UNITS/ML UNITS SQ SCH ×2 (14:01→21:20)
[2021-03-25] MEDS: POLYETHYLENE GLYCOL (HEALTHYLAX) 3350 17 GM PACKET PO SCH (14:02)
[2021-03-25] MEDS: ATORVASTATIN CA 10 MG TABLET (FP) PO SCH (21:19)
[2021-03-26] MEDS: oxyCODONE HCL 5 MG TABLET PO PRN ×4 (05:47→18:23)
[2021-03-26] MEDS: INSULIN (LEVEMIR) 100 UNITS/ML UNITS SQ SCH ×2 (06:03→21:41)
[2021-03-26] MEDS: INSULIN SLIDING SCALE (NOVOLOG) 1 VIAL SQ SCH ×4 (06:04→21:44)
[2021-03-26] MEDS: PANTOPRAZOLE 40 MG TABLET PO SCH (09:35)
[2021-03-26] MEDS: MULTIVITAMINS (DAILY MVI) TABLET (FP) PO SCH (09:35)
[2021-03-26] MEDS: CEPHALEXIN MONOHYDRATE 500 MG CAPSULE (UD) PO SCH ×2 (09:35→21:39)
[2021-03-26] MEDS: SENNOSIDES/DOCUSATE COMBO (SENNA PLUS) TABLET (UD) PO SCH ×2 (09:35→21:39)
[2021-03-26] MEDS: POLYETHYLENE GLYCOL (HEALTHYLAX) 3350 17 GM PACKET PO SCH (09:35)
[2021-03-26] MEDS: metoPROLOL SUCCINATE 25 MG TAB.SR.24H (FP) PO SCH (09:35)
[2021-03-26] MEDS: ASPIRIN COATED 81 MG TABLET.EC PO SCH ×2 (09:36→21:39)
[2021-03-26] MEDS: BUDESONIDE/FORMETEROL FUMARATE 160/4.5 mcg INHALER IH SCH ×2 (09:36→21:39)
[2021-03-26 09:49] LABS: BASO % 0.7 % (0-2.0); EOS % 2.8 % (0-4.5); HEMATOCRIT 31.6 % (32.4-45.2); LYMPH % 26.2 % (8-40); MCH 30.8 pg (25.7-33.7); MEAN CELL VOLUME 88.1 fl (80-96); MEAN PLT VOLUME 6.8 fl (7.5-11.1); MONO % 7.1 % (3.8-10.2); NEUT % 63.2 % (42.8-82.8); PLATELET COUNT 529 10^3/uL (134-434); RBC 3.58 M/mm3 (3.60-5.2); RDW 12.7 % (11.6-15.6); WHITE BLOOD COUNT 9.2 K/mm3 (4.0-10.0)
[2021-03-26 10:13] LABS: ALBUMIN 2.6 g/dl (3.4-5.0); CALCIUM 8.8 mg/dL (8.5-10.1)
[2021-03-26 10:14] LABS: BLOOD UREA NITROGEN 13.7 mg/dL (7-18)
[2021-03-26 10:17] LABS: CREATININE 0.4 mg/dL (0.55-1.3)
[2021-03-26 10:19] LABS: TOT PROT 6.6 g/dl (6.4-8.2)
[2021-03-26] MEDS: ATORVASTATIN CA 10 MG TABLET (FP) PO SCH (21:39)
[2021-03-27] MEDS: oxyCODONE HCL 5 MG TABLET PO PRN ×2 (06:17→10:24)
[2021-03-27] MEDS: INSULIN SLIDING SCALE (NOVOLOG) 1 VIAL SQ SCH ×2 (06:24→12:01)
[2021-03-27] MEDS: INSULIN (LEVEMIR) 100 UNITS/ML UNITS SQ SCH (06:24)
[2021-03-27] MEDS: MULTIVITAMINS (DAILY MVI) TABLET (FP) PO SCH (10:24)
[2021-03-27] MEDS: PANTOPRAZOLE 40 MG TABLET PO SCH (10:25)
[2021-03-27] MEDS: ASPIRIN COATED 81 MG TABLET.EC PO SCH (10:25)
[2021-03-27] MEDS: BUDESONIDE/FORMETEROL FUMARATE 160/4.5 mcg INHALER IH SCH (10:25)
[2021-03-27] MEDS: metoPROLOL SUCCINATE 25 MG TAB.SR.24H (FP) PO SCH (10:25)
[2021-03-27] MEDS: SENNOSIDES/DOCUSATE COMBO (SENNA PLUS) TABLET (UD) PO SCH (10:25)
[2021-03-27] MEDS: CEPHALEXIN MONOHYDRATE 500 MG CAPSULE (UD) PO SCH (10:25)
[2021-03-27] MEDS: POLYETHYLENE GLYCOL (HEALTHYLAX) 3350 17 GM PACKET PO SCH (10:27)
[2021-03-27 14:32] VITALS: BP 116/70; PULSE 90; TEMP 98.4
== END 2021-03-27 15:25 | DRG 308 ==
LOC: JER 12:40 → JERBED 15:42 → J6S 18:25
PROVIDERS: ADMIT Family Medicine; ATTEND Family Medicine
PROC: 0QS704Z Reposition Left Upper Femur with Internal Fixation Device, Open Approach (ICD-10-PCS; principal; 2021-03-20 13:00)
DX: S72.402A Unspecified fracture of lower end of left femur, initial encounter for closed fracture (principal); I10 Essential (primary) hypertension; I25.119 Atherosclerotic heart disease of native coronary artery with unspecified angina pectoris; F41.9 Anxiety disorder, unspecified; E78.5 Hyperlipidemia, unspecified; E11.9 Type 2 diabetes mellitus without complications; J45.30 Mild persistent asthma, uncomplicated; K42.9 Umbilical hernia without obstruction or gangrene; I25.2 Old myocardial infarction; J44.9 Chronic obstructive pulmonary disease, unspecified; W18.30XA Fall on same level, unspecified, initial encounter; Y92.89 Other specified places as the place of occurrence of the external cause; Z96.652 Presence of left artificial knee joint
CPT/HCPCS: 36415; 71045-TC-FY; 73523-TC-FY; 73552-TC-LT-FY; 73562-TC-LT-FY; 73590-TC-LT-FY; 73610-TC-LT-FY; 73630-TC-LT; 76000-TC-FY; 80048; 80053; 80061; 82962; 83036; 84443; 84702; 85025; 85027; 85610; 85730; 86850; 86900; 86901; 87081; 93005; 93010; 94010; 94760; 97116-GP; 97162-GP; 99285-25; C9803; J0131; J1644; U0003; U0005

== ENCOUNTER 2023-08-01 04:16 | Day surgery (SDC) | payer OTHER ==
[2023-07-29 15:24] VITALS: BMI 29.2
[2023-08-01 10:50] VITALS: TEMP 98.2
[2023-08-01 10:56] VITALS: BP 107/60; PULSE 69; RESP 20
== END 2023-08-01 09:50 | disposition home or self-care (01) ==
LOC: JASU-ENDO 04:16
PROVIDERS: ATTEND Student in an Organized Health Care Education/Training Program
PROC: 0DBN8ZX Excision of Sigmoid Colon, Via Natural or Artificial Opening Endoscopic, Diagnostic (ICD-10-PCS; principal; 2023-08-01 08:30)
DX: Z12.11 Encounter for screening for malignant neoplasm of colon (principal); D12.5 Benign neoplasm of sigmoid colon; K57.30 Diverticulosis of large intestine without perforation or abscess without bleeding
CPT/HCPCS: 82962; 88305-TC

== ENCOUNTER → 2024-03-05 | Day surgery (SDC) | payer OTHER ==
[2024-02-26 15:25] VITALS: BMI 29.2
[2024-03-05 08:20] VITALS: BP 139/87; PULSE 63; RESP 14; TEMP 98.4
== END | disposition home or self-care (01) ==
LOC: JASU-ENDO 04:37
PROVIDERS: ATTEND Student in an Organized Health Care Education/Training Program
DX: Z53.9 Procedure and treatment not carried out, unspecified reason (principal)
CPT/HCPCS: 82962